=== PATIENT | male | born 1950 | race Two or more races ===

== ENCOUNTER → 2019-06-27 | Outpatient (CLI) | payer MEDICARE, BC ==
[2019-06-27 10:46] LABS: BASO # 0.1 10^3/uL (0.0-0.2); BASO % 1.2 % (0.0-1.0); EOS # 0.8 10^3/uL (0.0-0.5); EOS % 14.8 % (0.0-3.0); HEMATOCRIT 44.6 % (42.0-52.0); HEMOGLOBIN 14.8 g/dl (13.5-17.5); LYMPH # 1.1 10^3/uL (1.5-5.0); LYMPH % 20.9 % (24.0-44.0); MEAN CORPUSCULAR HEMOGLOBIN 28.6 pg (27.0-33.0); MEAN CORPUSCULAR HGB CONC 33.2 g/dl (32.0-36.5); MEAN CORPUSCULAR VOLUME 86.3 fl (80.0-96.0); MONO # 0.5 10^3/uL (0.0-0.8); MONO % 10.4 % (0.0-5.0); NEUTROPHILS # 2.7 10^3/uL (1.5-8.5); NEUTROPHILS % 52.3 % (36.0-66.0); PLATELET COUNT, AUTOMATED 172 10^3/uL (150-450); RED BLOOD COUNT 5.17 10^6/uL (4.30-6.10); WHITE BLOOD COUNT 5.2 10^3/uL (4.0-10.0)
== END ==
LOC: M LAB 09:54
PROVIDERS: ATTEND Family Medicine
DX: D72.1 Eosinophilia (principal)

== ENCOUNTER 2019-08-29 09:50 | Day surgery (SDC) | payer MEDICARE, BC ==
[~2019-08-29] VITALS: Ht 172.7 cm; Wt 81.6 kg
[~2019-08-29 09:50] MED LIST: ALBU83IN INH; ARNU1INH INH; ASPI81TA85 PO; CELE1CAP9; FLON1SPR; NS 1,000 ML IV ONE; OXYC-517; VITA200028 PO
[2019-08-29] MEDS ORDERED: propofoL 200 MG/20 ML VIAL As Ordered ONE (11:29)
[2019-08-29] MEDS ORDERED: LIDOCAINE 2% INJ 100 MG/5 ML SDV (FOR ANES.) As Ordered ONE (11:29)
--- NOTE | 2019-08-29 11:49 | ROOR ---
Patient Name: Andres Bhatti Procedure Date: 08/29/2019 11:17 AM Date of : 1950 Age: 69 Room: [facility] Gender: Male Note Status: Finalized Procedure: Upper GI endoscopy Indications: Follow-up of celiac disease Providers: Horace Mcghee MD Referring MD: Ceci MARINO DO Requesting Provider: Medicines: Monitored Anesthesia Care Complications: No immediate complications. Procedure: Pre-Anesthesia Assessment: - Prior to the procedure, a History and Physical was performed, and patient medications and allergies were reviewed. The patient is competent. The risks and benefits of the procedure and the sedation options and risks were discussed with the patient. All questions were answered and informed consent was obtained. Patient identification and proposed procedure were verified by the physician, the nurse and the anesthesiologist in the procedure room. Mental Status Examination: alert and oriented. Airway Examination: normal oropharyngeal airway and neck mobility. Respiratory Examination: clear to auscultation. CV Examination: normal. Prophylactic Antibiotics: The patient does not require prophylactic antibiotics. Prior Anticoagulants: The patient has taken no previous anticoagulant or antiplatelet agents. ASA Grade Assessment: II - A patient with mild systemic disease. After reviewing the risks and benefits, the patient was deemed in satisfactory condition to undergo the procedure. The anesthesia plan was to use monitored anesthesia care (MAC). Immediately prior to administration of medications, the patient was re-assessed for adequacy to receive sedatives. The heart rate, respiratory rate, oxygen saturations, blood pressure, adequacy of pulmonary ventilation, and response to care were monitored throughout the procedure. The physical status of the patient was re-assessed after the procedure. The Endoscope was introduced through the mouth, and advanced to the second part of duodenum. The upper GI endoscopy was accomplished without difficulty. The patient tolerated the procedure well. Findings: LA Grade A (one or more mucosal breaks less than 5 mm, not extending between tops of 2 mucosal folds) esophagitis with no bleeding was found in the distal esophagus. Biopsies were taken with a cold forceps for histology. Biopsies were obtained from the proximal and distal esophagus with cold forceps for histology of suspected eosinophilic esophagitis. Verification of patient identification for the specimen was done by the physician and nurse using the patient's name, date and medical record number. Estimated blood loss was minimal. A small hiatal hernia was present. Localized mild inflammation characterized by erythema, friability and granularity was found in the gastric body and in the gastric antrum. Biopsies were taken with a cold forceps for Helicobacter pylori testing. The duodenal bulb and second portion of the duodenum were normal. Biopsies for histology were taken with a cold forceps for evaluation of celiac disease. Impression: - LA Grade A reflux esophagitis. Biopsied. - Small hiatal hernia. - Gastritis. Biopsied. - Normal duodenal bulb and second portion of the duodenum. Biopsied. Recommendation: - Patient has a contact number available for emergencies. The signs and symptoms of potential delayed complications were discussed with the patient. Return to normal activities tomorrow. Written discharge instructions were provided to the patient. - Gluten free diet. - Continue present medications. - Follow an antireflux regimen. - Await pathology results. - Telephone GI clinic for pathology results in 2 weeks. - Return to primary care physician. Horace Mcghee MD Horace Mcghee MD 08/29/2019 11:49:02 AM Electronically signed by Horace Mcghee MD Number of Addenda: 0 Note Initiated On: 08/29/2019 11:17 AM Estimated Blood Loss: Estimated blood loss was minimal.
[2019-08-29 12:18] VITALS: BP 141/87
== END 2019-08-29 12:15 | disposition home or self-care (01) ==
LOC: M OPP 09:50
PROVIDERS: ATTEND Internal Medicine Gastroenterology
DX: K21.0 Gastro-esophageal reflux disease with esophagitis (principal); K44.9 Diaphragmatic hernia without obstruction or gangrene; K29.70 Gastritis, unspecified, without bleeding; K90.0 Celiac disease; Z79.899 Other long term (current) drug therapy

== ENCOUNTER → 2019-10-17 | Outpatient (CLI) | payer MEDICARE, BC ==
[~2019-10-17] MED LIST changes: -NS 1,000 ML IV ONE
[2019-10-17 14:09] LABS: BASO # 0.1 10^3/uL (0.0-0.2); BASO % 0.9 % (0.0-1.0); EOS # 0.7 10^3/uL (0.0-0.5); EOS % 12.9 % (0.0-3.0); HEMATOCRIT 45.1 % (42.0-52.0); HEMOGLOBIN 15.1 g/dl (13.5-17.5); LYMPH # 1.1 10^3/uL (1.5-5.0); LYMPH % 19.9 % (24.0-44.0); MEAN CORPUSCULAR HGB CONC 33.5 g/dl (32.0-36.5); MEAN CORPUSCULAR VOLUME 86.6 fl (80.0-96.0); MONO # 0.5 10^3/uL (0.0-0.8); MONO % 9.6 % (0.0-5.0); NEUTROPHILS # 3.2 10^3/uL (1.5-8.5); NEUTROPHILS % 56.5 % (36.0-66.0); PLATELET COUNT, AUTOMATED 211 10^3/uL (150-450); RED BLOOD COUNT 5.21 10^6/uL (4.30-6.10); WHITE BLOOD COUNT 5.6 10^3/uL (4.0-10.0)
[2019-10-17 14:13] LABS: BLOOD UREA NITROGEN 15 MG/DL (7-18); CALCIUM LEVEL 8.7 MG/DL (8.8-10.2); CARBON DIOXIDE LEVEL 28 MEQ/L (21-32); CHLORIDE LEVEL 106 MEQ/L (98-107); CREATININE FOR GFR 0.96 MG/DL (0.70-1.30); GLOMERULAR FILTRATION RATE > 60.0 (>49); GLUCOSE, FASTING 88 MG/DL (70-100); POTASSIUM SERUM 4.3 MEQ/L (3.5-5.1); SODIUM LEVEL 138 MEQ/L (136-145)
== END ==
LOC: M PLALAB 11:10
PROVIDERS: ATTEND Family Medicine
DX: I10 Essential (primary) hypertension (principal); D72.1 Eosinophilia

== ENCOUNTER → 2019-12-19 | Outpatient (CLI) | payer MEDICARE, BC ==
[~2019-12-19] MED LIST changes: +AMLO1TAB24 PO; -ASPI81TA85 PO; +ASPI81TA86 PO; +HYDR12CA PO; +SM LTAB5 PO
[2019-12-19 11:49] LABS: BLOOD UREA NITROGEN 23 MG/DL (7-18); CARBON DIOXIDE LEVEL 30 MEQ/L (21-32); CHLORIDE LEVEL 107 MEQ/L (98-107); CREATININE FOR GFR 1.02 MG/DL (0.70-1.30); GLOMERULAR FILTRATION RATE > 60.0 (>49); GLUCOSE, FASTING 102 MG/DL (70-100); POTASSIUM SERUM 4.2 MEQ/L (3.5-5.1); SODIUM LEVEL 139 MEQ/L (136-145)
== END ==
LOC: M PLALAB 08:49
PROVIDERS: ATTEND Family Medicine
DX: I10 Essential (primary) hypertension (principal)

== ENCOUNTER → 2019-12-22 | Outpatient (CLI) | payer MEDICARE, BC ==
[2019-12-22 14:34] LABS: BASO # 0.1 10^3/uL (0.0-0.2); BASO % 1.5 % (0.0-1.0); EOS # 0.9 10^3/uL (0.0-0.5); EOS % 15.9 % (0.0-3.0); HEMOGLOBIN 14.9 g/dl (13.5-17.5); LYMPH % 18.4 % (24.0-44.0); MEAN CORPUSCULAR HGB CONC 33.9 g/dl (32.0-36.5); MEAN CORPUSCULAR VOLUME 85.6 fl (80.0-96.0); MONO # 0.6 10^3/uL (0.0-0.8); MONO % 10.3 % (0.0-5.0); NEUTROPHILS # 2.9 10^3/uL (1.5-8.5); NEUTROPHILS % 53.7 % (36.0-66.0); PLATELET COUNT, AUTOMATED 206 10^3/uL (150-450); RED BLOOD COUNT 5.14 10^6/uL (4.30-6.10); WHITE BLOOD COUNT 5.3 10^3/uL (4.0-10.0)
== END ==
LOC: M PLALAB 11:28
PROVIDERS: ATTEND Family Medicine
DX: I10 Essential (primary) hypertension (principal)

== ENCOUNTER → 2020-02-02 | Outpatient (CLI) | payer MEDICARE, BC ==
[~2020-02-02] MED LIST changes: +METHACHOLINE KIT (J7674) INH ONE
--- NOTE | 2020-02-24 13:32 | METHCHAL ---
ORDERED BY: Jennifer Kwong RN, ANP QUALITY: Study of excellent technical quality. PROCEDURE: Under protocol, methacholine was administered. Even after a maximum dose of 25 mg or 18.875 CDUs, no provocation was ever achieved. IMPRESSION: Negative methacholine challenge study MTDD
--- NOTE | 2020-02-27 07:29 | PFTRPT ---
Visit Date: 02/02/2020 Second ID: [id number] Referring Doctor: Jennifer Abdullahi Height: 69.00 Inches Weight: 172.00 Lbs BSA: 1.94 Diagnosis: R05 QUALITY: Study of excellent technical quality. PROCEDURE: Under protocol, methacholine was administered. Even after a total dose of 25 mg or 188.875 CDUs, no provocation dose ever achieved. IMPRESSION: Negative methacholine challenge study. MTDD
== END ==
LOC: M CARPUL 09:25
PROVIDERS: ATTEND Nurse Practitioner Adult Health
DX: R05 Cough (principal)
CPT/HCPCS: 94070; 95070; J7674

== ENCOUNTER → 2020-02-23 | Outpatient (CLI) | payer MEDICARE, BC ==
[~2020-02-23] MED LIST changes: -METHACHOLINE KIT (J7674) INH ONE
== END ==
LOC: M PLALAB 10:30
PROVIDERS: ATTEND Family Medicine
DX: Z53.9 Procedure and treatment not carried out, unspecified reason (principal); I10 Essential (primary) hypertension

== ENCOUNTER → 2020-03-09 | Outpatient (CLI) | payer MEDICARE, BC ==
[2020-03-09 11:38] LABS: BASO # 0.1 10^3/uL (0.0-0.2); EOS # 1.1 10^3/uL (0.0-0.5); HEMATOCRIT 45.8 % (42.0-52.0); HEMOGLOBIN 15.1 g/dl (13.5-17.5); LYMPH # 1.1 10^3/uL (1.5-5.0); LYMPH % 21.6 % (24.0-44.0); MEAN CORPUSCULAR HEMOGLOBIN 28.7 pg (27.0-33.0); MEAN CORPUSCULAR VOLUME 87.1 fl (80.0-96.0); MONO # 0.6 10^3/uL (0.0-0.8); MONO % 11.2 % (0.0-5.0); NEUTROPHILS # 2.2 10^3/uL (1.5-8.5); NEUTROPHILS % 44.2 % (36.0-66.0); PLATELET COUNT, AUTOMATED 213 10^3/uL (150-450); RED BLOOD COUNT 5.26 10^6/uL (4.30-6.10)
[2020-03-09 11:44] LABS: ALBUMIN 3.8 GM/DL (3.2-5.2); ALT/SGPT 28 U/L (12-78); BILIRUBIN,TOTAL 0.5 MG/DL (0.2-1.0); BLOOD UREA NITROGEN 17 MG/DL (7-18); CALCIUM LEVEL 8.7 MG/DL (8.8-10.2); CARBON DIOXIDE LEVEL 28 MEQ/L (21-32); CHLORIDE LEVEL 109 MEQ/L (98-107); CHOLESTEROL LEVEL 181 MG/DL (<200); CHOLESTEROL RISK RATIO 2.784 (<5); CREATININE FOR GFR 1.11 MG/DL (0.70-1.30); FREE T4 0.95 NG/DL (0.76-1.46); GLOMERULAR FILTRATION RATE > 60.0 (>42); GLUCOSE, FASTING 100 MG/DL (70-100); HDL CHOLESTEROL 65 MG/DL (>40); LDL CHOLESTEROL 106 MG/DL (<100); NON-HDL-C 116 MG/DL; POTASSIUM SERUM 4.2 MEQ/L (3.5-5.1); SODIUM LEVEL 143 MEQ/L (136-145); TOTAL PROTEIN 6.5 GM/DL (6.4-8.2); TRIGLYCERIDES LEVEL 49 MG/DL (<150)
[2020-03-09 12:31] LABS: EOS % 21.8 % (0.0-3.0)
[2020-03-12 19:11] LABS: TISSUE TRANSGLUTAMINASE IgA <2 U/mL (0-3); TISSUE TRANSGLUTAMINASE IgG <2 U/mL (0-5)
== END ==
LOC: M PLALAB 08:37
PROVIDERS: ATTEND Family Medicine
DX: I10 Essential (primary) hypertension (principal); K90.0 Celiac disease; E78.00 Pure hypercholesterolemia, unspecified

== ENCOUNTER → 2020-05-07 | Outpatient (CLI) | payer MEDICARE, BC ==
[~2020-05-07] MED LIST changes: +ISOVUE-370 76% 100ML VIAL As Ordered ONE
--- NOTE | 2020-05-07 09:46 | REP ---
INDICATION: PNEUMONIA COMPARISON: None TECHNIQUE: Axial contrast enhanced images from the thoracic inlet to the upper abdomen with coronal and sagittal reformations using 75 ml Isovue 370 intravenous contrast material. This CT examination was performed using the following dose reduction techniques: Automated exposure control, adjustment of mA and/or kv according to the patient's size, and use of iterative reconstruction technique. FINDINGS: Minimal posterior basilar atelectasis versus dependent changes along with small area of lingular atelectasis identified. No significant consolidation, or pleural effusion. No pneumothorax. Tracheobronchial tree is patent. No adenopathy. Mediastinum demonstrates normal thoracic aorta without aneurysm or dissection. Minimal atherosclerotic changes to the coronary arteries noted without cardiomegaly or pericardial effusion. Thyroid gland appears normal. Musculoskeletal structures are intact. Limited upper abdomen demonstrates normal bilateral adrenal glands. IMPRESSION: Very minimal posterior basilar dependent changes/atelectasis and small focus of fibroatelectatic change at the lingula. No significant consolidation to suggest pneumonia. No effusion or adenopathy. <Electronically signed by Frankie Santana > 05/07/20 [id number]
== END ==
LOC: M RAD 08:08
PROVIDERS: ATTEND Family Medicine
DX: J18.9 Pneumonia, unspecified organism (principal); D38.1 Neoplasm of uncertain behavior of trachea, bronchus and lung; I25.10 Atherosclerotic heart disease of native coronary artery without angina pectoris; J98.11 Atelectasis
CPT/HCPCS: 71260; Q9967

== ENCOUNTER → 2020-05-24 | Outpatient (CLI) | payer MEDICARE, BC ==
[~2020-05-24] MED LIST changes: -ISOVUE-370 76% 100ML VIAL As Ordered ONE
[2020-05-24 17:51] LABS: BASO # 0.1 10^3/uL (0.0-0.2); EOS # 0.6 10^3/uL (0.0-0.5); EOS % 11.8 % (0.0-3.0); HEMATOCRIT 44.2 % (42.0-52.0); HEMOGLOBIN 14.4 g/dl (13.5-17.5); LYMPH % 20.3 % (24.0-44.0); MEAN CORPUSCULAR HEMOGLOBIN 28.1 pg (27.0-33.0); MEAN CORPUSCULAR HGB CONC 32.6 g/dl (32.0-36.5); MEAN CORPUSCULAR VOLUME 86.2 fl (80.0-96.0); MONO # 0.5 10^3/uL (0.0-0.8); MONO % 9.3 % (0.0-5.0); NEUTROPHILS # 2.9 10^3/uL (1.5-8.5); NEUTROPHILS % 57.4 % (36.0-66.0); PLATELET COUNT, AUTOMATED 203 10^3/uL (150-450); RED BLOOD COUNT 5.13 10^6/uL (4.30-6.10); WHITE BLOOD COUNT 5.1 10^3/uL (4.0-10.0)
[2020-05-24 18:32] LABS: BLOOD UREA NITROGEN 16 MG/DL (7-18); CALCIUM LEVEL 9.2 MG/DL (8.8-10.2); CARBON DIOXIDE LEVEL 30 MEQ/L (21-32); CHLORIDE LEVEL 102 MEQ/L (98-107); CREATININE FOR GFR 1.05 MG/DL (0.70-1.30); GLOMERULAR FILTRATION RATE > 60.0 (>42); GLUCOSE, FASTING 98 MG/DL (70-100); POTASSIUM SERUM 4.1 MEQ/L (3.5-5.1); SODIUM LEVEL 137 MEQ/L (136-145)
== END ==
LOC: M PLALAB 10:53
PROVIDERS: ATTEND Family Medicine
DX: I10 Essential (primary) hypertension (principal)

== ENCOUNTER → 2020-09-10 | Outpatient (CLI) | payer MEDICARE, BC ==
[2020-09-10 16:07] LABS: IMMUNOGLOBULIN A 89.3 MG/DL (70-400); IMMUNOGLOBULIN E 35.6 IU/ML (<100); IMMUNOGLOBULIN G 866 MG/DL (681-1648); IMMUNOGLOBULIN M 76.4 MG/DL (40-230)
== END ==
LOC: M PLALAB 11:16
PROVIDERS: ATTEND Allergy & Immunology Allergy
DX: D84.9 Immunodeficiency, unspecified (principal)

== ENCOUNTER → 2020-12-05 | Outpatient (CLI) | payer MEDICARE, BC ==
[2020-12-05 14:00] LABS: BASO # 0.1 10^3/uL (0.0-0.2); BASO % 1.4 % (0.0-1.0); EOS # 0.7 10^3/uL (0.0-0.5); EOS % 13.2 % (0.0-3.0); HEMATOCRIT 45.5 % (42.0-52.0); HEMOGLOBIN 15.1 g/dl (13.5-17.5); LYMPH # 1.1 10^3/uL (1.5-5.0); LYMPH % 21.4 % (24.0-44.0); MEAN CORPUSCULAR HEMOGLOBIN 28.7 pg (27.0-33.0); MEAN CORPUSCULAR HGB CONC 33.2 g/dl (32.0-36.5); MEAN CORPUSCULAR VOLUME 86.3 fl (80.0-96.0); MONO # 0.5 10^3/uL (0.0-0.8); MONO % 10.8 % (2.0-8.0); NEUTROPHILS # 2.6 10^3/uL (1.5-8.5); PLATELET COUNT, AUTOMATED 217 10^3/uL (150-450); RED BLOOD COUNT 5.27 10^6/uL (4.30-6.10)
[2020-12-05 14:31] LABS: ALBUMIN 4.3 GM/DL (3.2-5.2); ALT/SGPT 38 U/L (12-78); BLOOD UREA NITROGEN 10 MG/DL (7-18); CALCIUM LEVEL 9.4 MG/DL (8.8-10.2); CARBON DIOXIDE LEVEL 28 MEQ/L (21-32); CHLORIDE LEVEL 104 MEQ/L (98-107); CHOLESTEROL LEVEL 231 MG/DL (<200); CHOLESTEROL RISK RATIO 2.924 (<5); CREATININE FOR GFR 0.97 MG/DL (0.70-1.30); FREE T4 1.01 NG/DL (0.76-1.46); GLOMERULAR FILTRATION RATE > 60.0 (>42); GLUCOSE, FASTING 86 MG/DL (70-100); HDL CHOLESTEROL 79 MG/DL (>40); LDL CHOLESTEROL 141 MG/DL (<100); NON-HDL-C 152 MG/DL; POTASSIUM SERUM 4.3 MEQ/L (3.5-5.1); SODIUM LEVEL 140 MEQ/L (136-145); TOTAL PROTEIN 7.3 GM/DL (6.4-8.2); TRIGLYCERIDES LEVEL 53 MG/DL (<150)
[2020-12-06 12:12] LABS: TISSUE TRANSGLUTAMINASE IgA 2 U/mL (0-3); TISSUE TRANSGLUTAMINASE IgG <2 U/mL (0-5)
== END ==
LOC: M PLALAB 12:07
PROVIDERS: ATTEND Family Medicine
DX: D72.10 Eosinophilia, unspecified (principal); K90.0 Celiac disease; E78.00 Pure hypercholesterolemia, unspecified

== ENCOUNTER → 2021-03-13 | Outpatient (CLI) | payer MEDICARE, BC ==
[2021-03-13 13:24] LABS: BASO # 0.1 10^3/uL (0.0-0.2); EOS # 0.9 10^3/uL (0.0-0.5); EOS % 17.1 % (0.0-3.0); HEMATOCRIT 44.4 % (42.0-52.0); HEMOGLOBIN 15.2 g/dl (13.5-17.5); LYMPH % 18.6 % (24.0-44.0); MEAN CORPUSCULAR HGB CONC 34.2 g/dl (32.0-36.5); MEAN CORPUSCULAR VOLUME 84.7 fl (80.0-96.0); MONO # 0.7 10^3/uL (0.0-0.8); MONO % 13.2 % (2.0-8.0); NEUTROPHILS # 2.6 10^3/uL (1.5-8.5); NEUTROPHILS % 49.9 % (36.0-66.0); PLATELET COUNT, AUTOMATED 236 10^3/uL (150-450); RED BLOOD COUNT 5.24 10^6/uL (4.30-6.10); WHITE BLOOD COUNT 5.2 10^3/uL (4.0-10.0)
[2021-03-13 13:59] LABS: ALBUMIN 4.1 GM/DL (3.2-5.2); ALT/SGPT 31 U/L (12-78); BILIRUBIN,TOTAL 0.7 MG/DL (0.2-1.0); BLOOD UREA NITROGEN 15 MG/DL (7-18); CALCIUM LEVEL 8.7 MG/DL (8.8-10.2); CARBON DIOXIDE LEVEL 32 MEQ/L (21-32); CHLORIDE LEVEL 101 MEQ/L (98-107); CHOLESTEROL LEVEL 199 MG/DL (<200); CHOLESTEROL RISK RATIO 2.584 (<5); FREE T4 0.94 NG/DL (0.76-1.46); GLOMERULAR FILTRATION RATE > 60.0 (>42); GLUCOSE, FASTING 105 MG/DL (70-100); HDL CHOLESTEROL 77 MG/DL (>40); LDL CHOLESTEROL 111 MG/DL (<100); NON-HDL-C 122 MG/DL; POTASSIUM SERUM 4.2 MEQ/L (3.5-5.1); SODIUM LEVEL 136 MEQ/L (136-145); TRIGLYCERIDES LEVEL 56 MG/DL (<150)
[2021-03-14 23:07] LABS: PSA TOTAL 1.6 ng/mL (0.0-4.0)
== END ==
LOC: M PLALAB 10:24
PROVIDERS: ATTEND Family Medicine
DX: E78.00 Pure hypercholesterolemia, unspecified (principal); I10 Essential (primary) hypertension; J30.81 Allergic rhinitis due to animal (cat) (dog) hair and dander; R35.0 Frequency of micturition

== ENCOUNTER → 2021-04-01 | Outpatient (CLI) | payer MEDICARE, BC ==
[2021-04-01 10:53] LABS: IMMUNOGLOBULIN A 95.6 MG/DL (70-400); IMMUNOGLOBULIN E 52.1 IU/ML (<100); IMMUNOGLOBULIN G 913 MG/DL (681-1648); IMMUNOGLOBULIN M 82.1 MG/DL (40-230); RHEUMATOID FACTOR QUANT < 10.0 IU/ML (<15.0)
[2021-04-07 21:10] LABS: ANCA-ATYPICAL <1:20 titer (Neg:<1:20); ASPERGILLUS FLAVUS ABY Negative (Neg:<1:1); ASPERGILLUS FUMIGATUS ABY Negative (Neg:<1:1); ASPERGILLUS NIGER ABY Negative (Neg:<1:1); BLASTOMYCES ANTIBODY LEVEL Negative (Neg:<1:1); CRYPTOCOCCUS ANTIGEN SER Negative (Negative); CYCLIC CITRULLINATED PEPTIDE 5 units (0-19); CYTOPLASMIC NEUTROP AB ANCA-C <1:20 titer (Neg:<1:20); D001-IgE D pteronyssinus <0.10 kU/L (Class 0); E005-IgE Dog Dander < 0.10 kU/L (Class 0); G002-IgE Bermuda Grass < 0.10 kU/L (Class 0); M001-IgE Penicillium chrysogen < 0.10 kU/L (Class 0); M002 IgE Cladosporium herbaru < 0.10 kU/L (Class 0); M003 IgE Aspergillus fumigatu < 0.10 kU/L (Class 0); M006-IgE Alternaria alternata < 0.10 kU/L (Class 0); PERINUCLEAR AB ANCA-P <1:20 titer (Neg:<1:20); STRONGYLOIDES SERUM ANTIBODIES Negative (Negative); T001-IgE Maple/Box Elder < 0.10 kU/L (Class 0); T003-IgE Common Silver Birch 1.75 kU/L (Class III); T006-IgE Cedar, Mountain < 0.10 kU/L (Class 0); T007-IgE Oak, White 0.28 kU/L (Class 0/I); T008-IgE Elm, American < 0.10 kU/L (Class 0); T015-IgE Ash, White < 0.10 kU/L (Class 0); T070-IgE White Mulberry < 0.10 kU/L (Class 0); W018-IgE Sheep Sorrel < 0.10 kU/L (Class 0)
== END ==
LOC: M LAB 09:06
PROVIDERS: ATTEND Internal Medicine Pulmonary Disease
DX: J47.9 Bronchiectasis, uncomplicated (principal); J30.9 Allergic rhinitis, unspecified

== ENCOUNTER → 2021-04-19 | Outpatient (CLI) | payer MEDICARE, BC ==
[2021-04-19 15:44] LABS: BLOOD UREA NITROGEN 11 MG/DL (7-18); CALCIUM LEVEL 9.4 MG/DL (8.8-10.2); CARBON DIOXIDE LEVEL 32 MEQ/L (21-32); CHLORIDE LEVEL 99 MEQ/L (98-107); CREATININE FOR GFR 1.06 MG/DL (0.70-1.30); GLOMERULAR FILTRATION RATE > 60.0 (>42); GLUCOSE, FASTING 61 MG/DL (70-100); POTASSIUM SERUM 4.4 MEQ/L (3.5-5.1); SODIUM LEVEL 133 MEQ/L (136-145)
== END ==
LOC: M PLALAB 13:29
PROVIDERS: ATTEND Family Medicine
DX: I10 Essential (primary) hypertension (principal)

== ENCOUNTER → 2021-05-21 | Outpatient (REF) | payer MEDICARE, BC | LOC: M LAB REF 19:12 | PROVIDERS: ATTEND Family Medicine | DX: J06.9 Acute upper respiratory infection, unspecified (principal) ==

== ENCOUNTER → 2021-07-24 | Outpatient (CLI) | payer MEDICARE, BC ==
[2021-07-24 11:06] LABS: BLOOD UREA NITROGEN 13 MG/DL (7-18); CALCIUM LEVEL 9.3 MG/DL (8.8-10.2); CARBON DIOXIDE LEVEL 31 MEQ/L (21-32); CHLORIDE LEVEL 99 MEQ/L (98-107); GLOMERULAR FILTRATION RATE > 60.0 (>42); GLUCOSE, FASTING 89 MG/DL (70-100); POTASSIUM SERUM 4.3 MEQ/L (3.5-5.1); SODIUM LEVEL 137 MEQ/L (136-145)
== END ==
LOC: M PLALAB 08:14
PROVIDERS: ATTEND Family Medicine
DX: I10 Essential (primary) hypertension (principal)

== ENCOUNTER → 2021-09-14 | Outpatient (REF) | payer MEDICARE, BC | LOC: M LAB REF 09:26 | PROVIDERS: ATTEND Internal Medicine Pulmonary Disease | DX: J47.9 Bronchiectasis, uncomplicated (principal) ==

== ENCOUNTER → 2021-09-19 | Outpatient (REF) | payer MEDICARE, BC | LOC: M LAB REF 12:08 | PROVIDERS: ATTEND Internal Medicine Pulmonary Disease | DX: J47.9 Bronchiectasis, uncomplicated (principal) ==

== ENCOUNTER → 2021-10-02 | Outpatient (CLI) | payer MEDICARE, BC | LOC: M CARPUL 11:16 | PROVIDERS: ATTEND Family Medicine | DX: I99.9 Unspecified disorder of circulatory system (principal) ==

== ENCOUNTER → 2021-11-28 | Outpatient (REF) | payer MEDICARE, BC ==
[~2021-11-28] MED LIST changes: +ALBU2.5V10 INH; -ALBU83IN INH
== END ==
LOC: M LAB REF 13:38
PROVIDERS: ATTEND Internal Medicine Pulmonary Disease
DX: J47.9 Bronchiectasis, uncomplicated (principal)

== ENCOUNTER → 2021-11-29 | Outpatient (CLI) | payer MEDICARE, BC | LOC: M RAD 11:09 | PROVIDERS: ATTEND Internal Medicine Pulmonary Disease | DX: J47.1 Bronchiectasis with (acute) exacerbation (principal) ==

== ENCOUNTER → 2022-01-17 | Outpatient (REF) | payer MEDICARE, BC | LOC: M LAB REF 16:18 | PROVIDERS: ATTEND Internal Medicine Pulmonary Disease | DX: J45.50 Severe persistent asthma, uncomplicated (principal) ==

== ENCOUNTER → 2022-02-19 | Outpatient (REF) | payer MEDICARE, BC | LOC: M LAB REF 17:15 | PROVIDERS: ATTEND Surgery | DX: D24.1 Benign neoplasm of right breast (principal) ==

== ENCOUNTER 2022-03-21 09:06 | Outpatient (CLI) | payer MEDICARE, BC ==
[~2022-03-21] VITALS: Ht 172.7 cm; Wt 81.0 kg
[2022-03-21 09:10] VITALS: BP 156/84
[2022-03-21] MEDS ORDERED: TEZEPELUMAB-EKKO 210MG 1.91ML SYRINGE (TEZSPIRE) SQ ONE (09:30)
== END 2022-03-21 09:25 | disposition home or self-care (01) ==
LOC: M INFU 09:06
PROVIDERS: ATTEND Internal Medicine Pulmonary Disease
DX: J45.50 Severe persistent asthma, uncomplicated (principal)
CPT/HCPCS: 96372; J2356

== ENCOUNTER → 2022-04-04 | Outpatient (CLI) | payer MEDICARE, BC ==
[2022-04-04 10:22] LABS: BASO # 0.1 10^3/uL (0.0-0.2); BASO % 1.1 % (0.0-1.0); EOS # 0.8 10^3/uL (0.0-0.5); EOS % 15.3 % (0.0-3.0); HEMATOCRIT 44.6 % (42.0-52.0); HEMOGLOBIN 14.5 g/dl (13.5-17.5); LYMPH # 1.3 10^3/uL (1.5-5.0); LYMPH % 23.7 % (24.0-44.0); MEAN CORPUSCULAR HEMOGLOBIN 28.7 pg (27.0-33.0); MEAN CORPUSCULAR HGB CONC 32.5 g/dl (32.0-36.5); MEAN CORPUSCULAR VOLUME 88.1 fl (80.0-96.0); MONO # 0.7 10^3/uL (0.0-0.8); MONO % 13.5 % (2.0-8.0); NEUTROPHILS # 2.5 10^3/uL (1.5-8.5); NEUTROPHILS % 46.2 % (36.0-66.0); PLATELET COUNT, AUTOMATED 224 10^3/uL (150-450); RED BLOOD COUNT 5.06 10^6/uL (4.30-6.10); WHITE BLOOD COUNT 5.4 10^3/uL (4.0-10.0)
[2022-04-04 11:17] LABS: BILIRUBIN,TOTAL 0.8 MG/DL (0.2-1.0); CALCIUM LEVEL 8.9 MG/DL (8.8-10.2); CHOLESTEROL RISK RATIO 2.643 (<5); CREATININE FOR GFR 1.27 MG/DL (0.70-1.30); FREE T4 0.91 NG/DL (0.76-1.46); GLOMERULAR FILTRATION RATE 59.3 (>42); POTASSIUM SERUM 4.1 MEQ/L (3.5-5.1); THYROID STIMULATING HORMONE 1.9 uIU/ML (0.358-3.740); TOTAL PROTEIN 6.6 GM/DL (6.4-8.2)
[2022-04-07 23:16] LABS: PSA TOTAL 1.5 ng/mL (0.0-4.0)
== END ==
LOC: M PLALAB 08:16
PROVIDERS: ATTEND Family Medicine
DX: I10 Essential (primary) hypertension (principal); R35.0 Frequency of micturition; R60.0 Localized edema

== ENCOUNTER 2022-04-18 09:35 | Outpatient (CLI) | payer MEDICARE, BC ==
[~2022-04-18] VITALS: Ht 175.3 cm; Wt 79.8 kg
[2022-04-18 09:35] VITALS: BP 128/88
[~2022-04-18 09:35] MED LIST changes: +TEZEPELUMAB-EKKO 210MG 1.91ML SYRINGE (TEZSPIRE) SQ ONE
[2022-04-18 10:15] VITALS: BP 142/73
== END 2022-04-18 10:15 | disposition home or self-care (01) ==
LOC: M INFU 09:35
PROVIDERS: ATTEND Internal Medicine Pulmonary Disease
DX: J45.50 Severe persistent asthma, uncomplicated (principal)
CPT/HCPCS: 96372; J2356

== ENCOUNTER 2022-04-28 18:15 | Observation (INO) | payer MEDICARE, BC ==
[~2022-04-28] VITALS: Ht 175.3 cm; Wt 76.7 kg
[~2022-04-28 18:15] MED LIST changes: -TEZEPELUMAB-EKKO 210MG 1.91ML SYRINGE (TEZSPIRE) SQ ONE
[2022-04-28] MEDS ORDERED: LATA0.0015 OU (18:27)
[2022-04-28] MEDS ORDERED: IRBE150T7 PO (18:27)
[2022-04-28] MEDS ORDERED: MONT10TA97 PO (18:27)
[2022-04-28] MEDS ORDERED: TEZE210S SQ (18:27)
[2022-04-28] MEDS ORDERED: HYDR-3490 PO (18:27)
[2022-04-28 19:01] LABS: BASO % 0.8 % (0.0-1.0); EOS # 0.6 10^3/uL (0.0-0.5); EOS % 10.5 % (0.0-3.0); HEMATOCRIT 39.9 % (42.0-52.0); HEMOGLOBIN 13.5 g/dl (13.5-17.5); LYMPH # 1.3 10^3/uL (1.5-5.0); LYMPH % 24.9 % (24.0-44.0); MEAN CORPUSCULAR HEMOGLOBIN 28.7 pg (27.0-33.0); MEAN CORPUSCULAR HGB CONC 33.8 g/dl (32.0-36.5); MEAN CORPUSCULAR VOLUME 84.7 fl (80.0-96.0); MONO # 0.6 10^3/uL (0.0-0.8); MONO % 10.5 % (2.0-8.0); NEUTROPHILS # 2.8 10^3/uL (1.5-8.5); NEUTROPHILS % 53.1 % (36.0-66.0); PLATELET COUNT, AUTOMATED 199 10^3/uL (150-450); RED BLOOD COUNT 4.71 10^6/uL (4.30-6.10); WHITE BLOOD COUNT 5.2 10^3/uL (4.0-10.0)
[2022-04-28] MEDS ORDERED: LABETALOL 100MG/20ML VIAL IV STA (19:10)
[2022-04-28] MEDS ORDERED: NS 1,000 ML IV SCH (19:35)
[2022-04-28 20:56] LABS: RSV AMPLIFICATION NEGATIVE (NEGATIVE)
[2022-04-28] MEDS: LATANOPROST 0.005% OPHTH SOLN 2.5 ML OU SCH (21:00)
[2022-04-28] MEDS ORDERED: VITA200012 PO (21:05)
[2022-04-28] MEDS ORDERED: THERTAB19 PO (21:06)
[2022-04-28] MEDS ORDERED: MELA2.5C4 PO (21:06)
[2022-04-28] MEDS ORDERED: HOME MED LIST COMPLETE! XX SCH (21:10)
[2022-04-28] MEDS ORDERED: hydrALAZINE 20MG/ML 1ML VIAL (J0360 PER 20MG) IV PRN (21:15)
[2022-04-28] MEDS ORDERED: LR 1,000 ML IV SCH (21:15)
[2022-04-28] MEDS: MONTELUKAST 10 MG TAB PO SCH (22:49)
[2022-04-28] MEDS ORDERED: TAMSULOSIN 0.4 MG CAP PO ONE (22:55)
[2022-04-28] MEDS ORDERED: LIDOCAINE 2% 5ML JELLY UROJET TOP ONE (23:20)
[2022-04-29] VITALS (7 sets, daily range): BP systolic 116–182; BP diastolic 72–108
[2022-04-29 03:28] LABS: OSMOLALITY URINE 190 MOSM/KG (50-1400)
[2022-04-29 03:54] LABS: CREATININE,RANDOM URINE < 13.0 MG/DL; SODIUM,RANDOM URINE 78 MEQ/L; TOTAL PROTEIN,RANDOM URINE 12.3 MG/DL (0.0-12.0)
[2022-04-29 05:09] LABS: HEMATOCRIT 39.1 % (42.0-52.0); HEMOGLOBIN 13.1 g/dl (13.5-17.5); MEAN CORPUSCULAR HEMOGLOBIN 28.5 pg (27.0-33.0); MEAN CORPUSCULAR HGB CONC 33.5 g/dl (32.0-36.5); PLATELET COUNT, AUTOMATED 178 10^3/uL (150-450); WHITE BLOOD COUNT 4.4 10^3/uL (4.0-10.0)
[2022-04-29 05:45] LABS: CALCIUM LEVEL 9.1 MG/DL (8.8-10.2); CREATININE FOR GFR 1.61 MG/DL (0.70-1.30); GLOMERULAR FILTRATION RATE 45.1 (>42); MAGNESIUM LEVEL 1.9 MG/DL (1.8-2.4); POTASSIUM SERUM 3.4 MEQ/L (3.5-5.1)
[2022-04-29] MEDS ORDERED: POTASSIUM CHLORIDE 10MEQ SR TABLET PO ONE (07:00)
[2022-04-29] MEDS: TAMSULOSIN 0.4 MG CAP PO SCH (08:09)
[2022-04-29] MEDS: FLUTICASONE PROP 0.05% NASAL SPRAY 16 GM (FLONASE) SCH (08:10)
[2022-04-29] MEDS: HEPARIN SOD (PORCINE) 5000UNITS/ML 1ML VIAL/SYRINGE SQ SCH ×2 (14:00→21:06)
[2022-04-29] MEDS: MONTELUKAST 10 MG TAB PO SCH (21:04)
[2022-04-29] MEDS: LATANOPROST 0.005% OPHTH SOLN 2.5 ML OU SCH (21:04)
[2022-04-29] MEDS: ACETAMINOPHEN TAB 650MG DOSE (2X325MG) PO PRN (21:05)
[2022-04-30 00:05] VITALS: BP 121/82
[2022-04-30 04:00] VITALS: BP 122/74
[2022-04-30] MEDS: HEPARIN SOD (PORCINE) 5000UNITS/ML 1ML VIAL/SYRINGE SQ SCH (05:03)
[2022-04-30 06:03] LABS: HEMATOCRIT 41.2 % (42.0-52.0); HEMOGLOBIN 13.9 g/dl (13.5-17.5); MEAN CORPUSCULAR HEMOGLOBIN 28.5 pg (27.0-33.0); MEAN CORPUSCULAR HGB CONC 33.7 g/dl (32.0-36.5); MEAN CORPUSCULAR VOLUME 84.4 fl (80.0-96.0); PLATELET COUNT, AUTOMATED 191 10^3/uL (150-450); RED BLOOD COUNT 4.88 10^6/uL (4.30-6.10); WHITE BLOOD COUNT 5.1 10^3/uL (4.0-10.0)
[2022-04-30 06:36] LABS: CALCIUM LEVEL 8.9 MG/DL (8.3-10.6); CREATININE FOR GFR 1.39 MG/DL (0.70-1.30); GLOMERULAR FILTRATION RATE 53.5 (>42); MAGNESIUM LEVEL 1.6 MG/DL (1.8-2.4); PHOSPHORUS LEVEL 4.2 MG/DL (2.4-5.1); POTASSIUM SERUM 3.8 MMOL/L (3.5-5.1)
[2022-04-30 07:44] VITALS: BP 118/82
[2022-04-30] MEDS ORDERED: MAGNESIUM OXIDE 400MG TAB (MAG-OX) PO ONE ×3 (08:00→10:00)
[2022-04-30] MEDS: TAMSULOSIN 0.4 MG CAP PO SCH (08:03)
[2022-04-30 08:04] VITALS: BP 118/82
[2022-04-30] MEDS: FLUTICASONE PROP 0.05% NASAL SPRAY 16 GM (FLONASE) SCH (08:04)
[2022-04-30] MEDS: ACETAMINOPHEN TAB 650MG DOSE (2X325MG) PO PRN (08:04)
[2022-04-30] MEDS ORDERED: AMLO1TAB25 PO (10:07)
[2022-04-30] MEDS ORDERED: FLOM0.4C39 PO (10:07)
== END 2022-04-30 13:26 | disposition home or self-care (01) ==
LOC: M ED 18:15 → M ED INP 21:13 → ENRESERV 23:28 → M PCU 04-29 00:42
PROVIDERS: ADMIT Family Medicine; ATTEND Family Medicine
DX: I16.9 Hypertensive crisis, unspecified (principal); R33.9 Retention of urine, unspecified; R79.89 Other specified abnormal findings of blood chemistry; N17.9 Acute kidney failure, unspecified; N13.4 Hydroureter; N13.30 Unspecified hydronephrosis; J45.909 Unspecified asthma, uncomplicated; I44.0 Atrioventricular block, first degree; I49.3 Ventricular premature depolarization; I10 Essential (primary) hypertension; Z96.641 Presence of right artificial hip joint; Z79.899 Other long term (current) drug therapy; K90.41 Non-celiac gluten sensitivity
CPT/HCPCS: 36415; 70450; 71046; 76775; 80047; 80048; 81002; 82570; 83735; 83935; 84100; 84156; 84300; 84484; 85025; 85027; 87631; 93005; 93041; 94760; 96361; 96374; 99285; G0378

== ENCOUNTER → 2022-05-05 | Outpatient (CLI) | payer MEDICARE, BC ==
[~2022-05-05] MED LIST changes: +AMLO1TAB25 PO; +FLOM0.4C39 PO; +HYDR-3490 PO; +IRBE150T7 PO; +LATA0.0015 OU; +MELA2.5C4 PO; +MONT10TA97 PO; +TEZE210S SQ; +THERTAB19 PO; +VITA200012 PO
[2022-05-05 11:05] LABS: BLOOD UREA NITROGEN 20 MG/DL (9-23); CARBON DIOXIDE LEVEL 31 MMOL/L (20-31); CHLORIDE LEVEL 105 MMOL/L (98-107); CREATININE FOR GFR 1.25 MG/DL (0.70-1.30); GLOMERULAR FILTRATION RATE > 60.0 (>42); GLUCOSE, FASTING 85 MG/DL (74-106); POTASSIUM SERUM 4.3 MMOL/L (3.5-5.1); SODIUM LEVEL 143 MMOL/L (136-145)
== END ==
LOC: M PLALAB 09:19
PROVIDERS: ATTEND Family Medicine
DX: N17.9 Acute kidney failure, unspecified (principal)

== ENCOUNTER 2022-05-16 22:16 | Emergency (ER) | payer MEDICARE, BC ==
[~2022-05-16] VITALS: Ht 175.3 cm; Wt 75.0 kg
[2022-05-17 02:35] LABS: BASO % 0.4 % (0.0-1.0); EOS # 0.1 10^3/uL (0.0-0.5); EOS % 1.3 % (0.0-3.0); HEMOGLOBIN 13.4 g/dl (13.5-17.5); LYMPH # 0.7 10^3/uL (1.5-5.0); MEAN CORPUSCULAR HGB CONC 35.3 g/dl (32.0-36.5); MEAN CORPUSCULAR VOLUME 82.3 fl (80.0-96.0); MONO # 0.9 10^3/uL (0.0-0.8); MONO % 8.9 % (2.0-8.0); NEUTROPHILS # 8.1 10^3/uL (1.5-8.5); PLATELET COUNT, AUTOMATED 191 10^3/uL (150-450); RED BLOOD COUNT 4.62 10^6/uL (4.30-6.10); WHITE BLOOD COUNT 9.8 10^3/uL (4.0-10.0)
[2022-05-17 03:00] LABS: BLOOD UREA NITROGEN 16 MG/DL (9-23); CARBON DIOXIDE LEVEL 22 MMOL/L (20-31); CHLORIDE LEVEL 103 MMOL/L (98-107); CREATININE FOR GFR 1.08 MG/DL (0.70-1.30); GLOMERULAR FILTRATION RATE > 60.0 (>42); GLUCOSE, FASTING 119 MG/DL (74-106); POTASSIUM SERUM 3.9 MMOL/L (3.5-5.1); SODIUM LEVEL 137 MMOL/L (136-145)
[2022-05-17 05:45] VITALS: BP 117/68
[2022-05-17] MEDS ORDERED: CEFD300C PO (05:46)
[2022-05-17] MEDS ORDERED: CEFDINIR 300 MG CAP (OMNICEF) PO ONE (05:50)
== END 2022-05-17 07:41 | disposition home or self-care (01) ==
LOC: M ED 22:16
DX: N30.00 Acute cystitis without hematuria (principal); R33.9 Retention of urine, unspecified; N13.4 Hydroureter; I10 Essential (primary) hypertension; J45.909 Unspecified asthma, uncomplicated; Z79.899 Other long term (current) drug therapy

== ENCOUNTER 2022-05-19 07:35 | Outpatient (CLI) | payer MEDICARE, BC ==
[~2022-05-19] VITALS: Ht 172.7 cm; Wt 76.3 kg
[2022-05-19 07:35] VITALS: BP 137/76
[~2022-05-19 07:35] MED LIST changes: +CEFD300C PO; +TEZEPELUMAB-EKKO 210MG 1.91ML SYRINGE (TEZSPIRE) SQ ONE
[2022-05-19 07:50] VITALS: BP 145/82
== END 2022-05-19 07:50 | disposition home or self-care (01) ==
LOC: M INFU 07:35
PROVIDERS: ATTEND Internal Medicine Pulmonary Disease
DX: J45.50 Severe persistent asthma, uncomplicated (principal)
CPT/HCPCS: 96372; J2356

== ENCOUNTER → 2022-05-22 | Outpatient (CLI) | payer MEDICARE, BC ==
[~2022-05-22] MED LIST changes: -TEZEPELUMAB-EKKO 210MG 1.91ML SYRINGE (TEZSPIRE) SQ ONE
[2022-05-22 16:05] LABS: CALCIUM LEVEL 8.6 MG/DL (8.3-10.6); CREATININE FOR GFR 1.28 MG/DL (0.70-1.30); GLOMERULAR FILTRATION RATE 58.8 (>42); POTASSIUM SERUM 4.7 MMOL/L (3.5-5.1)
== END ==
LOC: M PLALAB 11:19
PROVIDERS: ATTEND Emergency Medicine
DX: R33.9 Retention of urine, unspecified (principal)

== ENCOUNTER 2022-06-17 09:35 | Outpatient (CLI) | payer MEDICARE, BC ==
[~2022-06-17] VITALS: Ht 175.3 cm; Wt 80.0 kg
[~2022-06-17 09:35] MED LIST changes: +TEZEPELUMAB-EKKO 210MG 1.91ML SYRINGE (TEZSPIRE) SQ ONE
[2022-06-17 09:37] VITALS: BP 152/82
== END 2022-06-17 09:50 | disposition home or self-care (01) ==
LOC: M INFU 09:35
PROVIDERS: ATTEND Internal Medicine Pulmonary Disease
DX: J45.50 Severe persistent asthma, uncomplicated (principal)
CPT/HCPCS: 96372; J2356

== ENCOUNTER 2022-07-14 08:50 | Outpatient (CLI) | payer MEDICARE, BC ==
[~2022-07-14] VITALS: Ht 175.3 cm; Wt 80.0 kg
[~2022-07-14 08:50] MED LIST changes: -TEZEPELUMAB-EKKO 210MG 1.91ML SYRINGE (TEZSPIRE) SQ ONE
[2022-07-14 08:53] VITALS: BP 161/84
[2022-07-14 09:26] VITALS: BP 138/82
[2022-07-14] MEDS ORDERED: TEZEPELUMAB-EKKO 210MG 1.91ML SYRINGE (TEZSPIRE) SQ ONE (09:30)
== END 2022-07-14 09:25 | disposition home or self-care (01) ==
LOC: M INFU 08:50
PROVIDERS: ATTEND Internal Medicine Pulmonary Disease
DX: J45.50 Severe persistent asthma, uncomplicated (principal)
CPT/HCPCS: 96372; J2356

== ENCOUNTER → 2022-08-06 | Outpatient (CLI) | payer MEDICARE, BC ==
[~2022-08-06] MED LIST changes: +FINA5TAB2; +SILO8CAP
== END ==
LOC: M LABSMTC 08:58
PROVIDERS: ATTEND Anesthesiology
DX: Z01.812 Encounter for preprocedural laboratory examination (principal); Z20.822 Contact with and (suspected) exposure to COVID-19

== ENCOUNTER 2022-08-11 06:22 | Day surgery (SDC) | payer MEDICARE, BC ==
[~2022-08-11] VITALS: Ht 175.3 cm; Wt 78.9 kg
[~2022-08-11 06:22] MED LIST changes: +CYCLOPENTOLATE 1% OPHTH SOLN 2ML BTL OS SCH; +FLURBIPROFEN 0.03% OPHTH SOLN 2.5 ML OS SCH; +PHENYLEPHRINE 2.5% OPHTH SOL 2ML OS SCH; +TETRACAINE 0.5% OPHTH SOLN 4ML OS SCH
[2022-08-11] MEDS ORDERED: LIDOCAINE 1% SDV 5ML VIAL As Ordered ONE (06:40)
[2022-08-11] MEDS ORDERED: LR 1,000 ML IV SCH (07:00)
[2022-08-11] MEDS ORDERED: fentaNYL 100 MCG/2 ML INJECTION As Ordered ONE (07:18)
[2022-08-11] MEDS ORDERED: MIDAZOLAM INJ 2MG/2ML VIAL As Ordered ONE (07:18)
[2022-08-11 08:35] VITALS: BP 155/89
== END 2022-08-11 08:43 | disposition home or self-care (01) ==
LOC: M SDC 06:22
PROVIDERS: ATTEND Ophthalmology
DX: H25.12 Age-related nuclear cataract, left eye (principal); I10 Essential (primary) hypertension; K44.9 Diaphragmatic hernia without obstruction or gangrene; K90.0 Celiac disease; J82.83 Eosinophilic asthma; R33.9 Retention of urine, unspecified; Z79.899 Other long term (current) drug therapy; Z91.018 Allergy to other foods
CPT/HCPCS: 66984; J2250; J3010; V2632

== ENCOUNTER 2022-08-15 10:50 | Outpatient (CLI) | payer MEDICARE, BC ==
[~2022-08-15] VITALS: Ht 175.3 cm; Wt 75.9 kg
[2022-08-15 10:50] VITALS: BP 109/69
[~2022-08-15 10:50] MED LIST changes: -CYCLOPENTOLATE 1% OPHTH SOLN 2ML BTL OS SCH; -FLURBIPROFEN 0.03% OPHTH SOLN 2.5 ML OS SCH; -PHENYLEPHRINE 2.5% OPHTH SOL 2ML OS SCH; -TETRACAINE 0.5% OPHTH SOLN 4ML OS SCH
[2022-08-15] MEDS ORDERED: TEZEPELUMAB-EKKO 210MG 1.91ML SYRINGE (TEZSPIRE) SQ ONE (11:00)
== END 2022-08-15 11:15 | disposition home or self-care (01) ==
LOC: M INFU 10:50
PROVIDERS: ATTEND Internal Medicine Pulmonary Disease
DX: J45.50 Severe persistent asthma, uncomplicated (principal)
CPT/HCPCS: 96372; J2356

== ENCOUNTER 2022-09-12 10:31 | Outpatient (CLI) | payer MEDICARE, BC ==
[2022-09-12 10:40] VITALS: BP 133/90
[2022-09-12] MEDS ORDERED: TEZEPELUMAB-EKKO 210MG 1.91ML SYRINGE (TEZSPIRE) SQ SCH (11:00)
[2022-09-12 11:15] VITALS: BP 156/88
== END 2022-09-12 11:15 | disposition home or self-care (01) ==
LOC: M INFU 10:31
PROVIDERS: ATTEND Internal Medicine Pulmonary Disease
DX: J45.50 Severe persistent asthma, uncomplicated (principal)
CPT/HCPCS: 96372; J2356

== ENCOUNTER → 2022-09-26 | Outpatient (CLI) | payer MEDICARE, BC ==
[2022-09-26 18:38] LABS: BASO # 0.1 10^3/uL (0.0-0.2); BASO % 0.6 % (0.0-1.0); EOS # 0.5 10^3/uL (0.0-0.5); EOS % 5.9 % (0.0-3.0); HEMATOCRIT 40.3 % (42.0-52.0); LYMPH # 1.3 10^3/uL (1.5-5.0); MEAN CORPUSCULAR HEMOGLOBIN 28.6 pg (27.0-33.0); MEAN CORPUSCULAR HGB CONC 34.7 g/dl (32.0-36.5); MEAN CORPUSCULAR VOLUME 82.2 fl (80.0-96.0); MONO % 11.4 % (2.0-8.0); NEUTROPHILS # 6.1 10^3/uL (1.5-8.5); NEUTROPHILS % 67.7 % (36.0-66.0); PLATELET COUNT, AUTOMATED 198 10^3/uL (150-450); WHITE BLOOD COUNT 9.1 10^3/uL (4.0-10.0)
[2022-09-26 19:10] LABS: ALKALINE PHOSPHATASE 67 U/L (46-116); ALT/SGPT 25 U/L (7.0-40); AST/SGOT 29 U/L (<34); BLOOD UREA NITROGEN 19 MG/DL (9-23); CALCIUM LEVEL 8.7 MG/DL (8.3-10.6); CARBON DIOXIDE LEVEL 28 MMOL/L (20-31); CHLORIDE LEVEL 93 MMOL/L (98-107); CHOLESTEROL LEVEL 190 MG/DL (<200); CHOLESTEROL RISK RATIO 3.35 (<5); CREATININE FOR GFR 1.01 MG/DL (0.70-1.30); GLOMERULAR FILTRATION RATE > 60.0 (>42); GLUCOSE, FASTING 89 MG/DL (74-106); HDL CHOLESTEROL 56.7 MG/DL (>40); LDL CHOLESTEROL 117.1 MG/DL (<100); NON-HDL-C 133.3 MG/DL; SODIUM LEVEL 126 MMOL/L (136-145); TOTAL PROTEIN 6.5 G/DL (5.7-8.2); TRIGLYCERIDES LEVEL 81 MG/DL (<150)
[2022-09-26 19:11] LABS: FREE T4 0.99 NG/DL (0.89-1.76); THYROID STIMULATING HORMONE 0.868 uIU/ML (0.55-4.78)
== END ==
LOC: M PLALAB 14:53
PROVIDERS: ATTEND Family Medicine
DX: I10 Essential (primary) hypertension (principal)

== ENCOUNTER 2022-10-10 06:42 | Outpatient (CLI) | payer MEDICARE, BC ==
[~2022-10-10] VITALS: Ht 175.3 cm; Wt 80.7 kg
[2022-10-10] MEDS ORDERED: TEZEPELUMAB-EKKO 210MG 1.91ML SYRINGE (TEZSPIRE) SQ ONE (07:00)
[2022-10-10 07:05] VITALS: BP 117/72
== END 2022-10-10 07:25 | disposition home or self-care (01) ==
LOC: M INFU 06:42
PROVIDERS: ATTEND Internal Medicine Pulmonary Disease
DX: J45.50 Severe persistent asthma, uncomplicated (principal)
CPT/HCPCS: 96372; J2356

== ENCOUNTER 2022-11-07 10:55 | Outpatient (CLI) | payer MEDICARE, BC ==
[~2022-11-07] VITALS: Ht 175.3 cm; Wt 80.7 kg
[2022-11-07 10:55] VITALS: BP 138/62
[2022-11-07] MEDS ORDERED: TEZEPELUMAB-EKKO 210MG 1.91ML SYRINGE (TEZSPIRE) SQ ONE (11:00)
== END 2022-11-07 11:45 | disposition home or self-care (01) ==
LOC: M INFU 10:55
PROVIDERS: ATTEND Internal Medicine Pulmonary Disease
DX: J45.50 Severe persistent asthma, uncomplicated (principal)
CPT/HCPCS: 96372; J2356

== ENCOUNTER 2022-12-08 09:28 | Outpatient (CLI) | payer MEDICARE, BC ==
[2022-12-08 08:55] VITALS: BP 166/82; O2SAT 100
[2022-12-08] MEDS ORDERED: TEZEPELUMAB-EKKO 210MG 1.91ML SYRINGE (TEZSPIRE) SQ ONE (09:30)
== END 2022-12-08 09:50 ==
LOC: M INFU 09:28
PROVIDERS: ATTEND Internal Medicine Pulmonary Disease
DX: J45.50 Severe persistent asthma, uncomplicated (principal)
CPT/HCPCS: 96372; J2356

== ENCOUNTER 2023-01-30 11:00 | Outpatient (CLI) | payer MEDICARE, BC ==
[~2023-01-30] VITALS: Ht 175.3 cm; Wt 77.2 kg
[~2023-01-30 11:00] MED LIST changes: +TEZEPELUMAB-EKKO 210MG 1.91ML SYRINGE (TEZSPIRE) SQ ONE
[2023-01-30 11:13] VITALS: BP 142/78; O2SAT 99
[2023-01-30 11:31] VITALS: BP 132/62; O2SAT 99
== END 2023-01-30 11:30 | disposition home or self-care (01) ==
LOC: M INFU 11:00
PROVIDERS: ATTEND Internal Medicine Pulmonary Disease
DX: J45.50 Severe persistent asthma, uncomplicated (principal)
CPT/HCPCS: 96372; J2356

== ENCOUNTER 2023-02-27 11:00 | Outpatient (CLI) | payer MEDICARE, BC ==
[~2023-02-27] VITALS: Ht 175.3 cm; Wt 82.0 kg
[~2023-02-27 11:00] MED LIST changes: +CELE0.09; -CELE1CAP9
[2023-02-27 11:34] VITALS: BP 160/88; O2SAT 99
== END 2023-02-27 11:35 | disposition home or self-care (01) ==
LOC: M INFU 11:00
PROVIDERS: ATTEND Internal Medicine Pulmonary Disease
DX: J45.50 Severe persistent asthma, uncomplicated (principal); Z91.018 Allergy to other foods
CPT/HCPCS: 96372; J2356

== ENCOUNTER → 2023-03-18 | Outpatient (CLI) | payer MEDICARE, BC ==
[~2023-03-18] MED LIST changes: -TEZEPELUMAB-EKKO 210MG 1.91ML SYRINGE (TEZSPIRE) SQ ONE
== END ==
LOC: M PLALAB 10:32
PROVIDERS: ATTEND Physician Assistant Medical
DX: N40.1 Benign prostatic hyperplasia with lower urinary tract symptoms (principal)

== ENCOUNTER 2023-03-27 11:00 | Outpatient (CLI) | payer MEDICARE, BC ==
[~2023-03-27] VITALS: Ht 175.3 cm; Wt 82.0 kg
[2023-03-27 11:00] VITALS: BP 138/76; O2SAT 98
[~2023-03-27 11:00] MED LIST changes: +TEZEPELUMAB-EKKO 210MG 1.91ML SYRINGE (TEZSPIRE) SQ ONE
== END 2023-03-27 11:30 | disposition home or self-care (01) ==
LOC: M INFU 11:00
PROVIDERS: ATTEND Internal Medicine Pulmonary Disease
DX: J45.50 Severe persistent asthma, uncomplicated (principal)
CPT/HCPCS: 96372; J2356

== ENCOUNTER 2023-04-24 11:10 | Outpatient (CLI) | payer MEDICARE, BC ==
[~2023-04-24] VITALS: Ht 177.8 cm; Wt 82.0 kg
[~2023-04-24 11:10] MED LIST changes: -TEZEPELUMAB-EKKO 210MG 1.91ML SYRINGE (TEZSPIRE) SQ ONE
[2023-04-24] MEDS ORDERED: TEZEPELUMAB-EKKO 210MG 1.91ML SYRINGE (TEZSPIRE) SQ ONE (11:15)
[2023-04-24 11:22] VITALS: BP 144/82; O2SAT 99
== END 2023-04-24 11:40 ==
LOC: M INFU 11:10
PROVIDERS: ATTEND Internal Medicine Pulmonary Disease
DX: J45.50 Severe persistent asthma, uncomplicated (principal)
CPT/HCPCS: 96372; J2356

== ENCOUNTER 2023-05-22 11:10 | Outpatient (CLI) | payer MEDICARE, BC ==
[~2023-05-22] VITALS: Ht 175.3 cm; Wt 78.6 kg
[2023-05-22 11:10] VITALS: BP 150/76; O2SAT 99
[~2023-05-22 11:10] MED LIST changes: +TEZEPELUMAB-EKKO 210MG 1.91ML SYRINGE (TEZSPIRE) SQ ONE
[2023-05-22 11:41] VITALS: BP 135/84; O2SAT 99
== END 2023-05-22 11:40 | disposition home or self-care (01) ==
LOC: M INFU 11:10
PROVIDERS: ATTEND Internal Medicine Pulmonary Disease
DX: J45.50 Severe persistent asthma, uncomplicated (principal); Z91.02 Food additives allergy status
CPT/HCPCS: 96372; J2356

== ENCOUNTER 2023-06-26 09:13 | Outpatient (CLI) | payer MEDICARE, BC ==
[~2023-06-26] VITALS: Ht 175.3 cm; Wt 75.0 kg
[2023-06-26 09:23] VITALS: BP 161/83; O2SAT 99
[2023-06-26] MEDS ORDERED: TEZEPELUMAB-EKKO 210MG 1.91ML SYRINGE (TEZSPIRE) SQ ONE (09:30)
== END 2023-06-26 09:45 ==
LOC: M INFU 09:13
PROVIDERS: ATTEND Internal Medicine Pulmonary Disease
DX: J45.50 Severe persistent asthma, uncomplicated (principal)
CPT/HCPCS: 96372; J2356

== ENCOUNTER → 2023-07-07 | Outpatient (CLI) | payer MEDICARE, BC ==
[~2023-07-07] MED LIST changes: +IRBE150T27 PO; -IRBE150T7 PO; -TEZEPELUMAB-EKKO 210MG 1.91ML SYRINGE (TEZSPIRE) SQ ONE
[2023-07-07 13:48] LABS: BASO # 0.1 10^3/uL (0.0-0.2); BASO % 1.3 % (0.0-1.0); EOS # 0.4 10^3/uL (0.0-0.5); EOS % 9.1 % (0.0-3.0); HEMATOCRIT 43.5 % (42.0-52.0); HEMOGLOBIN 14.6 g/dl (13.5-17.5); LYMPH # 0.9 10^3/uL (1.5-5.0); LYMPH % 18.9 % (24.0-44.0); MEAN CORPUSCULAR HEMOGLOBIN 29.1 pg (27.0-33.0); MEAN CORPUSCULAR HGB CONC 33.6 g/dl (32.0-36.5); MEAN CORPUSCULAR VOLUME 86.8 fl (80.0-96.0); MONO # 0.5 10^3/uL (0.0-0.8); MONO % 11.7 % (2.0-8.0); NEUTROPHILS # 2.7 10^3/uL (1.5-8.5); NEUTROPHILS % 58.8 % (36.0-66.0); PLATELET COUNT, AUTOMATED 198 10^3/uL (150-450); RED BLOOD COUNT 5.01 10^6/uL (4.30-6.10); WHITE BLOOD COUNT 4.6 10^3/uL (4.0-10.0)
[2023-07-07 13:56] LABS: ALBUMIN 3.9 G/DL (3.2-5.2); ALKALINE PHOSPHATASE 66 U/L (46-116); ALT/SGPT 27 U/L (7.0-40); AST/SGOT 25 U/L (<34); BILIRUBIN,TOTAL 0.9 MG/DL (0.3-1.2); BLOOD UREA NITROGEN 12 MG/DL (9-23); CALCIUM LEVEL 9.5 MG/DL (8.3-10.6); CARBON DIOXIDE LEVEL 32 MMOL/L (20-31); CHLORIDE LEVEL 101 MMOL/L (98-107); CHOLESTEROL LEVEL 209 MG/DL (<200); CHOLESTEROL RISK RATIO 3.14 (<5); CREATININE FOR GFR 0.95 MG/DL (0.70-1.30); GLOMERULAR FILTRATION RATE > 60.0 (>42); GLUCOSE, FASTING 95 MG/DL (74-106); HDL CHOLESTEROL 66.5 MG/DL (>40); LDL CHOLESTEROL 126.1 MG/DL (<100); NON-HDL-C 142.5 MG/DL; POTASSIUM SERUM 4.2 MMOL/L (3.5-5.1); SODIUM LEVEL 136 MMOL/L (136-145); TOTAL PROTEIN 6.7 G/DL (5.7-8.2); TRIGLYCERIDES LEVEL 82 MG/DL (<150)
== END ==
LOC: M PLALAB 10:51
PROVIDERS: ATTEND Family Medicine
DX: I10 Essential (primary) hypertension (principal); E78.00 Pure hypercholesterolemia, unspecified

== ENCOUNTER 2023-07-24 11:30 | Outpatient (CLI) | payer MEDICARE, BC ==
[~2023-07-24] VITALS: Ht 177.8 cm; Wt 82.0 kg
[2023-07-24] MEDS: TEZEPELUMAB-EKKO 210MG 1.91ML SYRINGE (TEZSPIRE) SQ ONE (11:48)
[2023-07-24 11:58] VITALS: BP 125/69; O2SAT 96
== END 2023-07-24 12:00 ==
LOC: M INFU 11:30
PROVIDERS: ATTEND Internal Medicine Pulmonary Disease
DX: J45.50 Severe persistent asthma, uncomplicated (principal)
CPT/HCPCS: 96372; J2356

== ENCOUNTER 2023-08-21 11:15 | Outpatient (CLI) | payer MEDICARE, BC ==
[2023-08-21 11:15] VITALS: BP 140/88; O2SAT 100
[2023-08-21] MEDS: TEZEPELUMAB-EKKO 210MG 1.91ML SYRINGE (TEZSPIRE) SQ ONE (11:30)
== END 2023-08-21 11:30 | disposition home or self-care (01) ==
LOC: M INFU 11:15
PROVIDERS: ATTEND Internal Medicine Pulmonary Disease
DX: J45.50 Severe persistent asthma, uncomplicated (principal)
CPT/HCPCS: 96372; J2356

== ENCOUNTER 2023-09-18 11:37 | Outpatient (CLI) | payer MEDICARE, BC ==
[2023-09-18 11:37] VITALS: BP 144/85; O2SAT 99
[2023-09-18] MEDS: TEZEPELUMAB-EKKO 210MG 1.91ML SYRINGE (TEZSPIRE) SQ ONE (11:44)
== END 2023-09-18 11:50 ==
LOC: M INFU 11:37
PROVIDERS: ATTEND Internal Medicine Pulmonary Disease
DX: J45.50 Severe persistent asthma, uncomplicated (principal)
CPT/HCPCS: 96372; J2356

== ENCOUNTER 2023-10-16 11:20 | Outpatient (CLI) | payer MEDICARE, BC ==
[~2023-10-16 11:20] MED LIST changes: -SILO8CAP; +SILO8CAP3
[2023-10-16 11:24] VITALS: BP 128/76; O2SAT 97
[2023-10-16] MEDS: TEZEPELUMAB-EKKO 210MG 1.91ML SYRINGE (TEZSPIRE) SQ ONE (11:39)
== END 2023-10-16 11:50 ==
LOC: M INFU 11:20
PROVIDERS: ATTEND Internal Medicine Pulmonary Disease
DX: J45.50 Severe persistent asthma, uncomplicated (principal); J47.9 Bronchiectasis, uncomplicated
CPT/HCPCS: 96372; J2356

== ENCOUNTER 2023-11-13 08:53 | Outpatient (CLI) | payer MEDICARE, BC ==
[~2023-11-13] VITALS: Ht 175.3 cm; Wt 75.0 kg
[2023-11-13 09:00] VITALS: BP 126/68; O2SAT 98
[2023-11-13] MEDS: TEZEPELUMAB-EKKO 210MG 1.91ML SYRINGE (TEZSPIRE) SQ ONE (09:11)
== END 2023-11-13 09:15 | disposition home or self-care (01) ==
LOC: M INFU 08:53
PROVIDERS: ATTEND Internal Medicine Pulmonary Disease
DX: J47.9 Bronchiectasis, uncomplicated (principal); J45.50 Severe persistent asthma, uncomplicated; Z91.02 Food additives allergy status
CPT/HCPCS: 96372; J2356

== ENCOUNTER 2023-12-11 08:55 | Outpatient (CLI) | payer MEDICARE, BC ==
[~2023-12-11] VITALS: Ht 167.6 cm; Wt 75.0 kg
[2023-12-11] MEDS: TEZEPELUMAB-EKKO 210MG 1.91ML SYRINGE (TEZSPIRE) SQ ONE (09:00)
[2023-12-11 09:08] VITALS: BP 123/73; O2SAT 90
== END 2023-12-11 09:05 ==
LOC: M INFU 08:55
PROVIDERS: ATTEND Internal Medicine Pulmonary Disease
DX: J45.50 Severe persistent asthma, uncomplicated (principal); J47.9 Bronchiectasis, uncomplicated
CPT/HCPCS: 96372; J2356

== ENCOUNTER 2024-01-08 09:00 | Outpatient (CLI) | payer MEDICARE, BC ==
[~2024-01-08] VITALS: Ht 175.3 cm; Wt 74.1 kg
[2024-01-08 08:50] VITALS: BP 114/56; O2SAT 100
[2024-01-08] MEDS: TEZEPELUMAB-EKKO 210MG 1.91ML SYRINGE (TEZSPIRE) SQ ONE (09:03)
== END 2024-01-08 09:15 ==
LOC: M INFU 09:00
PROVIDERS: ATTEND Internal Medicine Pulmonary Disease
DX: J45.50 Severe persistent asthma, uncomplicated (principal); J47.9 Bronchiectasis, uncomplicated; Z91.018 Allergy to other foods
CPT/HCPCS: 96372; J2356

== ENCOUNTER → 2024-02-01 | Outpatient (CLI) | payer MEDICARE, BC | LOC: M PLAIMG 10:31 | PROVIDERS: ATTEND Internal Medicine Pulmonary Disease | DX: J45.50 Severe persistent asthma, uncomplicated (principal) ==

== ENCOUNTER 2024-02-05 09:51 | Outpatient (CLI) | payer MEDICARE, BC ==
[2024-02-05 10:10] VITALS: BP 123/82; O2SAT 99
[2024-02-05] MEDS: TEZEPELUMAB-EKKO 210MG 1.91ML SYRINGE (TEZSPIRE) SQ ONE (10:10)
== END 2024-02-05 10:20 ==
LOC: M INFU 09:51
PROVIDERS: ATTEND Internal Medicine Pulmonary Disease
DX: J45.50 Severe persistent asthma, uncomplicated (principal); J47.9 Bronchiectasis, uncomplicated
CPT/HCPCS: 96372; J2356

== ENCOUNTER 2024-03-04 09:55 | Outpatient (CLI) | payer MEDICARE, BC ==
[~2024-03-04] VITALS: Ht 175.3 cm; Wt 74.1 kg
[2024-03-04 09:50] VITALS: BP 122/73; O2SAT 98
[2024-03-04] MEDS: TEZEPELUMAB-EKKO 210MG 1.91ML SYRINGE (TEZSPIRE) SQ ONE (10:21)
== END 2024-03-04 10:40 ==
LOC: M INFU 09:55
PROVIDERS: ATTEND Internal Medicine Pulmonary Disease
DX: J45.50 Severe persistent asthma, uncomplicated (principal); J47.9 Bronchiectasis, uncomplicated; Z91.018 Allergy to other foods
CPT/HCPCS: 96372; J2356

== ENCOUNTER 2024-04-01 10:05 | Outpatient (CLI) | payer MEDICARE, BC ==
[~2024-04-01] VITALS: Ht 175.3 cm; Wt 75.0 kg
[2024-04-01 10:05] VITALS: BP 117/60; O2SAT 99
[2024-04-01] MEDS: TEZEPELUMAB-EKKO 210MG 1.91ML SYRINGE (TEZSPIRE) SQ ONE (10:31)
== END 2024-04-01 10:40 ==
LOC: M INFU 10:05
PROVIDERS: ATTEND Internal Medicine Pulmonary Disease
DX: J45.50 Severe persistent asthma, uncomplicated (principal); J47.9 Bronchiectasis, uncomplicated; Z91.018 Allergy to other foods
CPT/HCPCS: 96372; J2356

== ENCOUNTER 2024-04-29 09:52 | Outpatient (CLI) | payer MEDICARE, BC ==
[2024-04-29 10:10] VITALS: BP 121/73; O2SAT 98
[2024-04-29] MEDS: TEZEPELUMAB-EKKO 210MG 1.91ML SYRINGE (TEZSPIRE) SQ ONE (10:24)
== END 2024-04-29 10:30 ==
LOC: M INFU 09:52
PROVIDERS: ATTEND Internal Medicine Pulmonary Disease
DX: J45.50 Severe persistent asthma, uncomplicated (principal)
CPT/HCPCS: 96372; J2356

== ENCOUNTER 2024-05-27 12:00 | Outpatient (CLI) | payer MEDICARE, BC ==
[~2024-05-27] VITALS: Ht 175.3 cm; Wt 74.5 kg
[2024-05-27 12:10] VITALS: BP 140/82; O2SAT 97
[2024-05-27] MEDS: TEZEPELUMAB-EKKO 210MG 1.91ML SYRINGE (TEZSPIRE) SQ ONE (12:16)
== END 2024-05-27 12:22 ==
LOC: M INFU 12:00
PROVIDERS: ATTEND Internal Medicine Pulmonary Disease
DX: J45.50 Severe persistent asthma, uncomplicated (principal); Z91.018 Allergy to other foods
CPT/HCPCS: 96372; J2356

== ENCOUNTER 2024-06-24 09:35 | Outpatient (CLI) | payer MEDICARE, BC ==
[~2024-06-24] VITALS: Ht 175.3 cm; Wt 72.7 kg
[2024-06-24 09:50] VITALS: BP 127/73; O2SAT 100
[2024-06-24] MEDS: TEZEPELUMAB-EKKO 210MG 1.91ML SYRINGE (TEZSPIRE) SQ ONE (09:52)
== END 2024-06-24 10:05 ==
LOC: M INFU 09:35
PROVIDERS: ATTEND Internal Medicine Pulmonary Disease
DX: J45.50 Severe persistent asthma, uncomplicated (principal); Z91.018 Allergy to other foods
CPT/HCPCS: 96372; J2356

== ENCOUNTER 2024-07-22 09:30 | Outpatient (CLI) | payer MEDICARE, BC ==
[~2024-07-22] VITALS: Ht 175.3 cm; Wt 74.4 kg
[2024-07-22 09:30] VITALS: BP 151/81; O2SAT 99
[2024-07-22] MEDS: TEZEPELUMAB-EKKO 210MG 1.91ML SYRINGE (TEZSPIRE) SQ ONE (09:56)
== END 2024-07-22 10:00 ==
LOC: M INFU 09:30
PROVIDERS: ATTEND Internal Medicine Pulmonary Disease
DX: J45.50 Severe persistent asthma, uncomplicated (principal); Z91.018 Allergy to other foods
CPT/HCPCS: 96372; J2356

== ENCOUNTER 2024-08-18 10:27 | Outpatient (CLI) | payer MEDICARE, BC ==
[~2024-08-18] VITALS: Ht 175.3 cm; Wt 75.0 kg
[2024-08-18 10:42] VITALS: BP 122/72; O2SAT 99
[2024-08-18] MEDS: TEZEPELUMAB-EKKO 210MG 1.91ML SYRINGE (TEZSPIRE) SQ ONE (10:56)
== END 2024-08-18 11:00 ==
LOC: M INFU 10:27
PROVIDERS: ATTEND Internal Medicine Pulmonary Disease
DX: J45.50 Severe persistent asthma, uncomplicated (principal); Z91.018 Allergy to other foods
CPT/HCPCS: 96372; J2356

== ENCOUNTER 2024-09-20 07:20 | Outpatient (CLI) | payer MEDICARE, BC ==
[~2024-09-20] VITALS: Ht 175.3 cm; Wt 75.0 kg
[2024-09-20 07:36] VITALS: BP 125/80; O2SAT 98
[2024-09-20] MEDS: TEZEPELUMAB-EKKO 210MG 1.91ML SYRINGE (TEZSPIRE) SQ ONE (07:51)
== END 2024-09-20 07:55 ==
LOC: M INFU 07:20
PROVIDERS: ATTEND Internal Medicine Pulmonary Disease
DX: J45.50 Severe persistent asthma, uncomplicated (principal); Z91.018 Allergy to other foods
CPT/HCPCS: 96372; J2356

== ENCOUNTER 2024-10-19 07:52 | Outpatient (CLI) | payer MEDICARE, BC ==
[~2024-10-19] VITALS: Ht 175.3 cm; Wt 74.5 kg
[2024-10-19 07:50] VITALS: BP 115/77; O2SAT 97
[~2024-10-19 07:52] MED LIST changes: -FLOM0.4C39 PO; +TAMS-18 PO
[2024-10-19] MEDS: TEZEPELUMAB-EKKO 210MG 1.91ML SYRINGE (TEZSPIRE) SQ ONE (08:03)
== END 2024-10-19 08:10 | disposition home or self-care (01) ==
LOC: M INFU 07:52
PROVIDERS: ATTEND Internal Medicine Pulmonary Disease
DX: J45.50 Severe persistent asthma, uncomplicated (principal); Z91.018 Allergy to other foods
CPT/HCPCS: 96372; J2356

== ENCOUNTER 2025-01-10 07:23 | Outpatient (CLI) | payer MEDICARE, BC ==
[~2025-01-10] VITALS: Ht 175.3 cm; Wt 77.0 kg
[~2025-01-10 07:23] MED LIST changes: +HYDR12.510 PO; -HYDR12CA PO
[2025-01-10 07:41] VITALS: BP 144/87; O2SAT 99
[2025-01-10] MEDS: TEZEPELUMAB EKKO 210 MG/1.91 ML SQ ONE (07:45)
== END 2025-01-10 07:50 ==
LOC: M INFU 07:23
PROVIDERS: ATTEND Internal Medicine Pulmonary Disease
DX: J45.50 Severe persistent asthma, uncomplicated (principal); Z91.018 Allergy to other foods
CPT/HCPCS: 96372; J2356

== ENCOUNTER 2025-02-14 09:55 | Outpatient (CLI) | payer MEDICARE, BC ==
[~2025-02-14] VITALS: Ht 175.3 cm; Wt 77.0 kg
[2025-02-14 10:00] VITALS: BP 140/85; O2SAT 98
[2025-02-14] MEDS: TEZEPELUMAB EKKO 210 MG/1.91 ML SQ ONE (10:12)
== END 2025-02-14 10:15 ==
LOC: M INFU 09:55
PROVIDERS: ATTEND Internal Medicine Pulmonary Disease
DX: J45.50 Severe persistent asthma, uncomplicated (principal); Z91.018 Allergy to other foods
CPT/HCPCS: 96372; J2356

== ENCOUNTER 2025-03-14 09:51 | Outpatient (CLI) | payer MEDICARE, BC ==
[~2025-03-14] VITALS: Ht 172.7 cm; Wt 73.0 kg
[2025-03-14 10:00] VITALS: BP 149/82; O2SAT 96
[2025-03-14] MEDS: TEZEPELUMAB EKKO 210 MG/1.91 ML SQ ONE (10:17)
== END 2025-03-14 10:25 ==
LOC: M INFU 09:51
PROVIDERS: ATTEND Internal Medicine Pulmonary Disease
DX: J45.50 Severe persistent asthma, uncomplicated (principal); Z91.018 Allergy to other foods
CPT/HCPCS: 96372; J2356

== ENCOUNTER 2025-04-11 10:03 | Outpatient (CLI) | payer MEDICARE, BC ==
[~2025-04-11] VITALS: Ht 172.7 cm; Wt 72.7 kg
[2025-04-11 10:05] VITALS: BP 131/81; O2SAT 98
[2025-04-11] MEDS: TEZEPELUMAB EKKO 210 MG/1.91 ML SQ ONE (10:24)
== END 2025-04-11 10:30 ==
LOC: M INFU 10:03
PROVIDERS: ATTEND Internal Medicine Pulmonary Disease
DX: J45.50 Severe persistent asthma, uncomplicated (principal); Z91.018 Allergy to other foods
CPT/HCPCS: 96372; J2356

== ENCOUNTER 2025-05-09 09:48 | Outpatient (CLI) | payer MEDICARE, BC ==
[~2025-05-09] VITALS: Ht 175.3 cm; Wt 72.7 kg
[2025-05-09 10:00] VITALS: BP 163/78; O2SAT 95
[2025-05-09] MEDS: TEZEPELUMAB EKKO 210 MG/1.91 ML SQ ONE (10:09)
== END 2025-05-09 10:15 | disposition home or self-care (01) ==
LOC: M INFU 09:48
PROVIDERS: ATTEND Internal Medicine Pulmonary Disease
DX: J45.50 Severe persistent asthma, uncomplicated (principal); Z91.018 Allergy to other foods
CPT/HCPCS: 96372; J2356

== ENCOUNTER 2025-06-06 10:35 | Outpatient (CLI) | payer MEDICARE, BC ==
[~2025-06-06] VITALS: Ht 175.3 cm; Wt 74.1 kg
[2025-06-06 10:40] VITALS: BP 111/78; O2SAT 98
[2025-06-06] MEDS: TEZEPELUMAB EKKO 210 MG/1.91 ML SQ ONE (10:49)
== END 2025-06-06 10:51 | disposition home or self-care (01) ==
LOC: M INFU 10:35
PROVIDERS: ATTEND Internal Medicine Pulmonary Disease
DX: J45.50 Severe persistent asthma, uncomplicated (principal); Z91.02 Food additives allergy status
CPT/HCPCS: 96372; J2356